=== PATIENT | female | born 1995 | race Asian ===

== ENCOUNTER 2017-07-10 09:21 | Inpatient (IN) | payer MEDICAID ==
[2017-07-10] MEDS ORDERED: Sodium Chloride 0.9% 1,000 ML IV ONE (09:36)
[2017-07-10 10:02] LABS: MEAN CORPUSCULAR HEMOGLOBIN 24.9 pg (27.0-31.0); MEAN CORPUSCULAR HGB CONC 33.2 pg (28.0-36.0); MEAN PLATELET VOLUME 7.5 fl; PLATELET COUNT 265 Th/cmm (150-400); RED CELL DISTRIBUTION WIDTH 15.3 % (11.5-20.0)
[2017-07-10 10:05] LABS: URINE MICROSCOPIC INDICATED? YES; URINE SOURCE CLEAN C
[2017-07-10 10:05] LABS: WHITE BLOOD COUNT 18.5 Th/cmm (4.8-10.8)
[2017-07-10 10:07] LABS: URINE BILIRUBIN NEGATIVE (NEGATIVE); URINE BLOOD MODERATE (NEGATIVE); URINE GLUCOSE (UA) NEGATIVE (NEGATIVE); URINE KETONE TRACE mg/dL (NEGATIVE); URINE LEUKOCYTE ESTERASE LARGE (NEGATIVE); URINE NITRATE NEGATIVE (NEGATIVE); URINE PROTEIN 100 mg/dL (NEGATIVE); URINE UROBILINOGEN 0.2 E.U./dL (0.2 - 1.0)
[2017-07-10 10:08] LABS: URINE CLARITY HAZY (CLEAR); URINE COLOR YELLOW
[2017-07-10 10:18] LABS: URINE BACTERIA MODERATE /hpf (NONE SEEN); URINE EPITHELIAL CELLS MODERATE /lpf (FEW)
[2017-07-10 10:19] LABS: URINE WBC 50-100 /hpf (0-5)
[2017-07-10] MEDS ORDERED: cefTRIAXone 1 GM in Sodium Chloride 0.9% 50 ML IV ONE (10:25)
[2017-07-10 10:27] LABS: AMYLASE SERUM 31 U/L (29-103); ANION GAP 10.9 (7.0-16.0); BUN - UREA NITROGEN 6 mg/dL (7-25); CALCIUM SERUM 9.6 mg/dL (8.6-10.3); CARBON DIOXIDE 26.8 mEq/L (21.0-31.0); CHLORIDE 98 mEq/L (98-107); CREATININE - SERUM 0.8 mg/dL (0.6-1.2); GFR AFRICAN-AMERICAN > 60.0 ml/min (>90); GFR NON AFRICAN-AMERICAN > 60.0 ml/min; GLUCOSE 101 mg/dL (70-105); LIPASE 14 U/L (11-82); POTASSIUM SERUM 3.7 mEq/L (3.5-5.1); SODIUM SERUM 132 mEq/L (136-145)
[2017-07-10] MEDS ORDERED: cefTRIAXone 1 GM in Sodium Chloride 0.9% 50 ML IV SCH (10:30)
--- NOTE | 2017-07-10 10:32 | ED Physician Chart ---
ED Chief Complaint/HPI - Patient Information Date Seen:: 07/10/17 Time Seen:: 09:30 Chief Complaint:: Fever History of Present Illness:: onset x 3 days of fever, dysuria, flank pain, and nausea; pt denies trauma, H/As , S/T, neck pain, C/P, cough, SOB, Abd. Pain, A/V/D/C, chills, VB, or pelvic pain Allergies:: Allergies Allergy/AdvReac Type Severity Reaction Status Date / Time No Known Allergies Allergy Verified 07/10/17 09:32 Vitals:: Vital Signs - 8 hr 07/10/17 09:33 Temp 101.9 F HR 116 RR 22 BP 127/84 O2 Sat % 95 Historian:: Patient Review:: Nurse's Note Reviewed ED Review of Systems - Review of Systems General/Constitutional: Fever, No chills, No weight loss, No weakness, No diaphoresis, No edema, No loss of appetite Skin: No skin lesions, No rash, No bruising Head: No headache, No light-headedness Eyes: No loss of vision, No pain, No diplopia ENT: No earache, No nasal drainage, No sore throat, No tinnitus Neck: No neck pain, No swelling, No thyromegaly, No stiffness, No mass noted Cardio Vascular: No chest pain, No palpitations, No PND, No orthopnea, No edema Pulmonary: No SOB, No cough, No sputum, No wheezing GI: Nausea, Vomiting, Diarrhea, Pain, No melena, No hematochezia, No constipation, No hematemesis G/U: Dysuria, Frequency, No hematuria, No nacturia Fleet Coordinator: Vaginal discharge, No abnormal vaginal bleed, No contraction Musculoskeletal: No bone or joint pain, No back pain, No muscle pain Endocrine: No polyuria, No polydipsia Psychiatric: No prior psych history, No depression, No anxiety, No suicidal ideation, No homicidal ideation, No auditory hallucination, No visual hallucination Hematopoietic: No bruising, No lymphadenopathy Allergic/Immuno: No urticaria, No angioedema Neurological: No syncope, No focal symptoms, No weakness, No paresthesia, No headache, No seizure, No dizziness, No confusion, No vertigo ED Past Medical History - Past Medical History Obtainable: Yes Past Medical History: No significant medical hx Family History: HTN Social History: Non Smoker, No Alcohol, No Drug Use, Single Surgical History: None Psychiatricy History: None Medication: Reviewed Family Medical History - Family Member Father Hx Family Cancer: Yes ED Physical Exam - Physical Examination General/Constitutional: Awake, Well-developed, well-nourished, Alert, No distress, GCS 15, Non-toxic appearing, Ambulatory Head: Atraumatic Eyes: Lids, conjuctiva normal, PERRL, EOMI Skin: Nl inspection, No rash, No skin lesions, No ecchymosis, Well hydrated, No lymphadenopathy ENMT: External ears, nose nl, TM canals nl, Nasal exam nl, Lips, teeth, gums nl , Oropharynx nl, Tonsils nl Neck: Nontender, Full ROM w/o pain, No JVD, No nuchal rigidity, No bruit, No mass, No stridor Respiratory: Nl effort/Exclusion, Clear to Auscultation, No Wheeze/Rhonchi/Rales Cardio Vascular: RRR, No murmur, gallop, rubs, NL S1 S2, Carotid/Femoral/Distal pulses equal bilaterally GI: No tenderness/rebounding/guarding, No organomegaly, No hernia, Normal BS's, Nondistended, No mass/bruits, No McBurney tenderness : No CVA tenderness Other comments:: + CVAT Extremities: No tenderness or effusion, Full ROM, normal strength in all extremities, No edema, Normal digits & nails Neuro/Psych: Alert/oriented, DTR's symmetric, Normal sensory exam, Normal motor strength, Judgement/insight normal, Mood normal, Normal gait, No focal deficits Misc: Normal back, No paraspinal tenderness ED Labs/Radiology/EKG Results - Lab Results Results: Laboratory Tests 07/10/17 07/10/17 07/10/17 09:50 09:50 10:00 WBC 18.5 H RBC 5.20 H Hgb 13.0 Hct 39.0 L MCV 75.0 L MCH 24.9 L MCHC Differential 33.2 RDW 15.3 Plt Count 265 MPV 7.5 Neutrophils % 85.5 H Lymphocytes % 7.0 L Monocytes % 7.4 Eosinophils % 0.1 Basophils % 0.0 Serum , Qual NEGATIVE Urine Source CLEAN C Urine Color YELLOW Urine Clarity HAZY Urine pH 7.0 Ur Specific [place] 1.010 Urine Protein 100 H Urine Glucose (UA) NEGATIVE Urine Ketones TRACE Urine Blood MODERATE H Urine Nitrate NEGATIVE Urine Bilirubin NEGATIVE Urine Urobilinogen 0.2 Ur Leukocyte Esterase LARGE H Urine RBC 2-5 Urine WBC 50-100 H Ur Epithelial Cells MODERATE Urine Bacteria MODERATE H Comments:: WBC: 18.5; U/A: + Pyuria ED Septic Shock - . Is Septic Shock (SBP<90, OR Lactate>4 mmol\L) present?: No - <6hrs of presentation: Vital Signs: Vital Signs - 8 hr 07/10/17 09:33 Temp 101.9 F HR 116 RR 22 BP 127/84 O2 Sat % 95 ED Reassessment (Disposition) - Reassessment Reassessment Condition:: Improved - Diagnosis Diagnosis:: Fever; N/V/D; AGE; Gastritis; Gastroenteritis; Pyelonephritis; UTI; Sepsis; Leukocytosis - Aftercare/Follow up Instructions Aftercare/Follow-Up Instructions:: Counseled pt regarding lab results/diagnosis & need follow up, Counseled pt & family regarding lab results/diagnosis & need follow up - Patient Disposition Discharge/Transfer:: Acute Care w/in this hosp Accepting Physician:: Dr. Zepeda Time Called:: 1025 Time Responded:: 10:25 Admitted to:: Med/Surg Spoke to:: Dr. Zepeda Admitting Medical Physician:: Dr. Zepeda Condition at Disposition:: Stable, Improved
[2017-07-10 10:38] LABS: BAND NEUTROPHILE 3 % (0-10); LYMPHOCYTE 9 % (20-50); MANUAL DIFF REQUIRED? YES; MONOCYTE 3 % (2-10); NEUTROPHILS 85 % (40-80); TOTAL CELLS COUNTED 100
[2017-07-10 10:39] LABS: PLATELET ESTIMATE ADEQUATE (NORMAL)
[2017-07-10] MEDS: HYDROmorphone 2 mg/mL 1mL Vial IVP PRN (16:57)
[2017-07-11 05:54] LABS: % BASOPHILS 0.1 % (0.0-2.0); % EOSINOPHILS 0.1 % (0.0-5.0); % LYMPHOCYTES 9.2 % (20.0-50.0); % MONOCYTES 7.3 % (2.0-10.0); % NEUTROPHILS 83.3 % (40.0-80.0); HEMATOCRIT 36.9 % (41.0-60); HEMOGLOBIN 12.3 gm/dL (12-16); LYMPHOCYTE ABSOLUTE 1.3 Th/cmm (1.5-3.0); MEAN CELL VOLUME 76.4 fl (81-100); MEAN CORPUSCULAR HEMOGLOBIN 25.5 pg (27.0-31.0); MEAN CORPUSCULAR HGB CONC 33.4 pg (28.0-36.0); MEAN PLATELET VOLUME 7.9 fl; NEUTROPHILE ABSOLUTE 11.5 Th/cmm (1.8-8.0); PLATELET COUNT 227 Th/cmm (150-400); RED BLOOD COUNT 4.83 Mil/cmm (3.80-5.10); RED CELL DISTRIBUTION WIDTH 15.3 % (11.5-20.0)
[2017-07-11 05:57] LABS: WHITE BLOOD COUNT 13.8 Th/cmm (4.8-10.8)
[2017-07-11 06:05] LABS: ALB/GLOB RATIO 1.1 (1.0-1.8); ALBUMIN 3.7 gm/dL (3.7-5.3); ALKALINE PHOSPHATASE 53 U/L (34-104); ANION GAP 10.4 (7.0-16.0); BILIRUBIN,TOTAL 0.5 mg/dL (0.3-1.0); BUN - UREA NITROGEN 4 mg/dL (7-25); CALCIUM SERUM 9.3 mg/dL (8.6-10.3); CARBON DIOXIDE 24.3 mEq/L (21.0-31.0); CHLORIDE 103 mEq/L (98-107); CREATININE - SERUM 0.7 mg/dL (0.6-1.2); GFR AFRICAN-AMERICAN > 60.0 ml/min (>90); GFR NON AFRICAN-AMERICAN > 60.0 ml/min; GLUCOSE 126 mg/dL (70-105); POTASSIUM SERUM 3.7 mEq/L (3.5-5.1); SGOT 13 U/L (13-39); SGPT/ALT 12 U/L (7-52); SODIUM SERUM 134 mEq/L (136-145); TOTAL PROTEIN,SERUM 7.1 gm/dL (6.0-8.3)
--- NOTE | 2017-07-11 08:49 | History and Physical ---
History of Present Illness - HPI Chief Complaint: Headache, fever and dysuria HPI: Patient refer that x 2 days she has having headache, fever, dysuria and back pain. Last duvall she had vomit. She denied Diarrhea Vital Signs: Last Vital Signs Temp 97.3 F 07/11/17 04:30 Pulse 94 07/11/17 04:30 Resp 18 07/11/17 04:30 BP 121/71 07/11/17 04:30 Pulse Ox 95 07/11/17 04:30 Past Medical History Cardiovascular: Report: No Pertinent Hx Pulmonary: Report: No Pertinent Hx PATTERN GRADER: Report: No Pertinent Hx GI: Report: No Pertinent Hx Psych: Report: No Pertinent Hx Musculoskeletal: Report: No Pertinent Hx Rheumatologic: Report: No pertinent Hx Infectious Disease: Report: No Pertinent Hx Renal/: Report: No Pertinent Hx Endocrine: Report: No Pertinent Hx Dermatology: Report: No Pertinent Hx - Past Surgical History Past Surgical History: No pertinent Hx Family Medical History - Family Member Father History Unknown: Yes Name:: KRISTIN Age: 48 Ethnicity: Unknown Living Status: Unknown Hx Family Cancer: Yes Social History Smoke: No Alcohol: None Drugs: None Lives: With Family Domestic Violence: Negative - Medications Home Medications: Home Medication Medication Instructions Recorded Type Monostat 1 appl TP X1 07/10/17 History - Allergies Allergies/Adverse Reactions: Allergies Allergy/AdvReac Type Severity Reaction Status Date / Time No Known Allergies Allergy Verified 07/10/17 09:32 Review of Systems - Review of Systems Constitutional: Report: Fever Eyes: Report: No Significant ENT: Report: No Significant Respiratory: Report: No Significant Cardiovascular: Report: No Significant Gastrointestinal: Report: No Significant, Nausea, Vomiting Genitourinary: Report: Dysuria Musculoskeletal: Report: No Significant Skin: Report: No Significant Neurological: Report: No Significant Physical Exam - Physical Exam HEENT: Report: Ears Nose Throat within normal limits Neck: Report: Within normal limits Cardiovascular Systems: Report: Regular, Rate and Rhythm Respiratory: Report: Breath Sounds are within normal limits Abdomen: Report: Non-tender to palpation Back: Report: Inspection of back is within normal limits. Extremities: Report: Non-tender to palpation. Skin: Report: Color of skin is within normal limits, Warm, Dry Neuro/Psych: Report: Mood affect is within normal limits - Lab Results All Lab Results last 24 hours: Laboratory Results - last 24 hr 07/10/17 07/11/17 07/11/17 11:36 05:16 05:16 WBC 13.8 H D RBC 4.83 Hgb 12.3 Hct 36.9 L MCV 76.4 L MCH 25.5 L MCHC Differential 33.4 RDW 15.3 Plt Count 227 MPV 7.9 Neutrophils % 83.3 H Lymphocytes % 9.2 L Monocytes % 7.3 Eosinophils % 0.1 Basophils % 0.1 Sodium 134 L Potassium 3.7 Chloride 103 Carbon Dioxide 24.3 Anion Gap 10.4 BUN 4 L Creatinine 0.7 Est GFR ( Amer) > 60.0 Est GFR (Non-Af Amer) > 60.0 BUN/Creatinine Ratio 5.7 Glucose 126 H POC Glucose 96 Calcium 9.3 Total Bilirubin 0.5 AST 13 ALT 12 Alkaline Phosphatase 53 Total Protein 7.1 Albumin 3.7 Globulin 3.4 Albumin/Globulin Ratio 1.1 - Assessment Assessment: Current Active Problems Problem Status Onset VAGINAL ITCHING/BURNING WITH FEVER Acute Patient is awake, alert, calm referring headache. Dx: Pyelonephritis, leukocytosis. - Plan Plan: Patient in saline lock, Vanco and ceftriaxone, and pain control. Abdominal US requested. Will continue to monitor.
[2017-07-11] MEDS: cefTRIAXone 1 GM in 0.9% NS 50 ML IV SCH (09:03)
--- NOTE | 2017-07-11 10:30 | Diagnostic Imaging Report ---
Abdominal ultrasound HISTORY: Urinary tract infection The liver exhibits a homogeneous parenchyma. No focal lesions. The gallbladder appears normal. No calculi are seen. No biliary dilatation. Incomplete visualization of the pancreas due to bowel gas. The kidneys appear normal bilaterally. No focal lesions. No hydronephrosis. No other retroperitoneal or intra-abdominal abnormalities. IMPRESSION: Negative examination
[2017-07-11] MEDS: HYDROmorphone 2 mg/mL 1mL Vial IVP PRN (23:02)
[2017-07-12 06:12] LABS: % BASOPHILS 0.2 % (0.0-2.0); % EOSINOPHILS 0.2 % (0.0-5.0); % LYMPHOCYTES 13.1 % (20.0-50.0); % MONOCYTES 11.1 % (2.0-10.0); % NEUTROPHILS 75.4 % (40.0-80.0); HEMATOCRIT 34.2 % (41.0-60); HEMOGLOBIN 11.5 gm/dL (12-16); LYMPHOCYTE ABSOLUTE 1.2 Th/cmm (1.5-3.0); MEAN CELL VOLUME 74.9 fl (81-100); MEAN CORPUSCULAR HEMOGLOBIN 25.3 pg (27.0-31.0); MEAN CORPUSCULAR HGB CONC 33.7 pg (28.0-36.0); MEAN PLATELET VOLUME 7.8 fl; NEUTROPHILE ABSOLUTE 6.7 Th/cmm (1.8-8.0); PLATELET COUNT 243 Th/cmm (150-400); RED BLOOD COUNT 4.56 Mil/cmm (3.80-5.10); RED CELL DISTRIBUTION WIDTH 15.6 % (11.5-20.0)
[2017-07-12 06:14] LABS: WHITE BLOOD COUNT 8.9 Th/cmm (4.8-10.8)
[2017-07-12 06:22] LABS: ALB/GLOB RATIO 1.1 (1.0-1.8); ALBUMIN 3.4 gm/dL (3.7-5.3); ALKALINE PHOSPHATASE 46 U/L (34-104); ANION GAP 9.7 (7.0-16.0); BILIRUBIN,TOTAL 0.2 mg/dL (0.3-1.0); BUN - UREA NITROGEN 4 mg/dL (7-25); CALCIUM SERUM 8.8 mg/dL (8.6-10.3); CARBON DIOXIDE 22.9 mEq/L (21.0-31.0); CHLORIDE 104 mEq/L (98-107); CREATININE - SERUM 0.7 mg/dL (0.6-1.2); GFR AFRICAN-AMERICAN > 60.0 ml/min (>90); GFR NON AFRICAN-AMERICAN > 60.0 ml/min; GLUCOSE 128 mg/dL (70-105); POTASSIUM SERUM 3.6 mEq/L (3.5-5.1); SGOT 11 U/L (13-39); SGPT/ALT 11 U/L (7-52); SODIUM SERUM 133 mEq/L (136-145); TOTAL PROTEIN,SERUM 6.6 gm/dL (6.0-8.3)
--- NOTE | 2017-07-12 07:28 | Diagnostic Imaging Report ---
Pelvic ultrasound HISTORY: Pain, urinary tract infection Transabdominal and transvaginal sonographic technique relies. There is a normal uterine size with retroversion (8.5-4 0.8 x 6.4 cm). No focal myometrial lesions are seen. The endometrium appears normal (for metastatic is). 2 subcentimeter sonolucent foci seen in the region of the cervix consistent with nabothian cysts. The right ovary measures 3.3 x 2.4 x 3.3 cm. Subcentimeter cysts are seen. The left ovary measures 3.2 x 1.4 x 2.7 cm. Subcentimeter cysts are noted. A small amount of free fluid is seen in the cul-de-sac region of the pelvis. IMPRESSION: 1. Small amount of free fluid within the cul-de-sac region of the pelvis. The finding may be on a physiologic basis and should be correlated clinically and with the menstrual status. 2. Bilateral ovarian cystic/follicular changes 3. Small sonolucent foci in the region of the cervix consistent with nabothian cysts.
--- NOTE | 2017-07-12 08:37 | Discharge Summary ---
General Discharge Summary - Discharge Summary Date of Admission: 07/10/17 Admitting Diagnosis: Pyelonephritis, Leukocytosis Discharge Date: 07/12/17 Discharge Diagnosis: Pyelonephritis, Leukocytosis, anemia Laboratory Findings: Laboratory Results - last 24 hr 07/12/17 07/12/17 07/12/17 05:16 05:16 05:16 WBC 8.9 D RBC 4.56 Hgb 11.5 L Hct 34.2 L MCV 74.9 L MCH 25.3 L MCHC Differential 33.7 RDW 15.6 Plt Count 243 MPV 7.8 Neutrophils % 75.4 Lymphocytes % 13.1 L Monocytes % 11.1 H Eosinophils % 0.2 Basophils % 0.2 Sodium 133 L Potassium 3.6 Chloride 104 Carbon Dioxide 22.9 Anion Gap 9.7 BUN 4 L Creatinine 0.7 Est GFR ( Amer) > 60.0 Est GFR (Non-Af Amer) > 60.0 BUN/Creatinine Ratio 5.7 Glucose 128 H Calcium 8.8 Total Bilirubin 0.2 L AST 11 L ALT 11 Alkaline Phosphatase 46 Total Protein 6.6 Albumin 3.4 L Globulin 3.2 Albumin/Globulin Ratio 1.1 Vancomycin Trough 3.2 L Hospital Course: Patient responded to treatment, WBC became normal, pain controlled. Treatment: Patient was in IV NS, IV AB, and regular diet. Disposition: PT DISCHARGED HOME Home Medications: Home Medication Medication Instructions Recorded Type Monostat 1 appl TP X1 07/10/17 History Inpatient Medications: Current Medications Acetaminophen (Tylenol) 650 mg PO Q6H PRN PRN Reason: Pain or Fever >101 Stop: 09/08/17 15:07 Last Admin: 07/11/17 16:30 Dose: 650 mg Hydromorphone HCl (Dilaudid) 1 mg IVP Q8HR PRN PRN Reason: SEVERE PAIN Stop: 09/08/17 15:09 Last Admin: 07/11/17 23:02 Dose: 1 mg Ceftriaxone Sodium 1 gm/ (Sodium Chloride) 50 mls @ 100 mls/hr IV Q24HR CLIVE Stop: 09/09/17 09:59 Last Infusion: 07/11/17 14:03 Dose: Infused Vancomycin HCl 1.25 gm/ Sodium (Chloride) 250 mls @ 165 mls/hr IV Q12H CLIVE Stop: 09/09/17 09:59 Last Admin: 07/11/17 21:36 Dose: 165.7 mls/hr Vancomycin HCl 1.25 gm/ Sodium (Chloride) 250 mls @ 165 mls/hr IV Q8H CLIVE Stop: 09/10/17 08:59 Miscellaneous (Vancomycin Iv Per Pharmacy) 1 ea MC DAILY [facility] Stop: 09/09/17 08:59 Ondansetron HCl (Zofran) 4 mg IV Q8H PRN PRN Reason: Nausea / Vomiting Stop: 09/08/17 23:53 Last Admin: 07/11/17 00:42 Dose: 4 mg Activity: As Tolerated Discharge Diet: Regular Consults and Follow-Up: not on staff,PCP is [Primary Care Provider] - Consulting Speciality: Other (PCP) Instructions: Fever, Adult, Urinary Tract Infection, [id number], Dysuria
[2017-07-12] MEDS: cefTRIAXone 1 GM in 0.9% NS 50 ML IV SCH (09:23)
== END 2017-07-12 13:00 | disposition home or self-care (01) | DRG 720 ==
LOC: ER 09:21 → MSI 10:37
PROVIDERS: ADMIT General Practice; ATTEND General Practice
DX: A41.9 Sepsis, unspecified organism (principal); E87.1 Hypo-osmolality and hyponatremia; N12 Tubulo-interstitial nephritis, not specified as acute or chronic; D64.9 Anemia, unspecified; N39.0 Urinary tract infection, site not specified; K29.70 Gastritis, unspecified, without bleeding; K52.9 Noninfective gastroenteritis and colitis, unspecified; Z82.49 Family history of ischemic heart disease and other diseases of the circulatory system; Z71.89 Other specified counseling; Z79.899 Other long term (current) drug therapy
CPT/HCPCS: 36415-UA; 76700-TC; 76856-TC; 80048-TC; 80053-TC; 80202-TC; 81001-TC; 82150-TC; 82948-90; 83605; 83690-TC; 84703-TC; 85007-TC; 85025-TC; 85027-TC; 87086-90; J0696; J1170; J2405; J3370; J7030; Z7610